=== PATIENT | male | born 1955 | race Caucasian/White ===

== ENCOUNTER → 2023-02-10 | Outpatient (CLI) | payer OTHER, MEDICARE, SELFPAY | END | disposition home or self-care (01) | PROVIDERS: Referring Provider Urology; Visit Provider Urology | DX: R31.9 Hematuria, unspecified (principal) | CPT/HCPCS: 87077; 87086; 87088; 87186 ==

== ENCOUNTER → 2025-02-16 | Outpatient (CLI) | payer MEDICARE, SELFPAY ==
--- NOTE | 2025-02-16 12:59 | NEURO ---
NCS and/or EMG Patient Report Ordering Doctor: Rocael Arrieta DATE OF SERVICE: 02/16/25 Carrillo presents with complaints of a 6-month history of numbness and tingling in the right hand. Electrodiagnostic findings: Right median motor nerve demonstrates prolonged latency with normal amplitude and conduction velocity. Right ulnar motor response is within normal limits, including conduction across the elbow. Normal right median and right ulnar F?wave. Prolonged right median sensory latency at the wrist. Normal ulnar and radial sensory responses. Needle EMG testing was performed the right upper limb. All muscles tested showed no evidence of denervation with normal motor unit action potentials. Electrodiagnostic assessment: This is an abnormal study. 1. Electrodiagnostic findings suggestive of right-sided median mononeuropathy. This is consistent with a mild to moderate right carpal tunnel syndrome. Multi Select Codes Neurology Neurology Interp Codes: 30009-55 Musc test done w/n test comp (interp) and 21779-12 Nrv cndj tst 5-6 studies (interp)
--- NOTE | 2025-02-16 12:59 | NEURO ---
NCS and/or EMG Patient Report Ordering Doctor: Rocael Arrieta DATE OF SERVICE: 02/16/25 Carrillo presents with complaints of a 6-month history of numbness and tingling in the right hand. Electrodiagnostic findings: Right median motor nerve demonstrates prolonged latency with normal amplitude and conduction velocity. Right ulnar motor response is within normal limits, including conduction across the elbow. Normal right median and right ulnar F?wave. Prolonged right median sensory latency at the wrist. Normal ulnar and radial sensory responses. Needle EMG testing was performed the right upper limb. All muscles tested showed no evidence of denervation with normal motor unit action potentials. Electrodiagnostic assessment: This is an abnormal study. 1. Electrodiagnostic findings suggestive of right-sided median mononeuropathy. This is consistent with a mild to moderate right carpal tunnel syndrome. Multi Select Codes Neurology Neurology Interp Codes: 84019-48 Musc test done w/n test comp (interp) and 21266-59 Nrv cndj tst 5-6 studies (interp)
--- OUTSIDE RECORDS SUMMARY | 2025-02-16 20:19 | XMS RPT_ITS | CCD ---
Author Organization [facility] CliniSyct Care Team Providers Care Fluorescent Lamp Replacer Name Role Phone DUNIA VITAL, DR FERNANDO HUMMEL Attending Eric WHITE MD, DR FERNANDO HUMMEL Admitting ELI Toure DO Consulting Merle WHITE MD, DR FERNANDO HUMMEL Attending Fernando Arcos Referring Unavailable Fernando White Attending Unavailable RAMAKRISHNA JARQUIN MD Admitting Unavailable RAMAKRISHNA JARQUIN MD Attending Unavailable RAMAKRISHNA JARQUIN MD Primary Care Unavailable RAMAKRISHNA JARQUIN MD Consulting Unavailable PROVIDER, UNKNOWN Consulting Unavailable PROVIDER, UNKNOWN Consulting Unavailable RAMAKRISHNA JARQUIN MD Admitting Unavailable RAMAKRISHNA JARQUIN MD Attending Unavailable RAMAKRISHNA JARQUIN MD Primary Care Unavailable RAMAKRISHNA JARQUIN MD Consulting Unavailable PROVIDER, UNKNOWN Consulting Unavailable PROVIDER, UNKNOWN Consulting Unavailable RAMAKRISHNA JARQUIN MD Admitting Unavailable RAMAKRISHNA JARQUIN MD Attending Unavailable RAMAKRISHNA JARQUIN MD Primary Care Unavailable RAMAKRISHNA JARQUIN MD Consulting Unavailable PROVIDER, UNKNOWN Consulting Unavailable PROVIDER, UNKNOWN Consulting Unavailable JENELLE GALINDO DR Admitting Unavailable JENELLE GALINDO DR Attending Unavailable JENELLE GALINDO DR Primary Care Unavailable RAMAKRISHNA JARQUIN MD Consulting Unavailable PROVIDER, UNKNOWN Consulting Unavailable PROVIDER, UNKNOWN Consulting Unavailable Allergies Allergy Classification Reported Allergen(s) Allergy Type Date of Onset Reaction(s) Facility (1 source) Penicillin Drug Allergy [facility] Repository Problems Active Problems Problem Classification Problem Date Documented Da te Episodic/Chronic Disorders of lipid metabolism (1 source) Mixed hyperlipidemia; Translations: [Mixed hyperlipidemia] Onset: 09-02-2024 Chronic Essential hypertension (1 source) Essential (primary) hypertension; Translations: [Essential (primary) hypertension] Onset: 09-02-2024 Chronic Genitourinary symptoms and ill-defined conditions (1 source) Hematuria, unspecified; Translations: [Hematuria, unspecified] Onset: 05-05-2023 Episodic Hyperplasia of prostate (2 sources) Benign prostatic hyperplasia with lower urinary tract symptoms; Translations: [Benign prostatic hyperplasia with lower urinary tract symptoms] Onset: 02-14-2023 Chronic Past or Other Problems Problem Classification Problem Date Documented Da te Episodic/Chronic Other non-traumatic joint disorders (3 sources) Pain in right elbow; Translations: [Pain in right elbow] Onset: 07-15-2024 Episodic Other screening for suspected conditions (not mental disorders or infectious disease) (1 source) Encounter for screening for malignant neoplasm of prostate; Translations: [Encounter for screening for malignant neoplasm of prostate] Onset: 03-22-2024 Episodic Results Test Name Value Interpretation Reference Range Facility CBC (NO DIFF)on 09-02-2024 CBC panel Auto (Bld) Normal [facility] Comment on above: Result Comment: CBC( WITHOUT DIFFERENTIAL) Performed By: #### 2 85351 #### [place] [address] Erythrocyte distribution width (RBC) [Ratio] 12.7 % Normal 12.0 - 15.6 [facility] Comment on above: Performed By: #### 2 73692 #### [place] [address] Hematocrit (Bld) [Volume fraction] 44.8 % Normal 40.0 - 52.0 [facility] Comment on above: Performed By: #### 2 32455 #### [place] [address] Hemoglobin (Bld) [Mass/Vol] 15.4 g/dL Normal 13.0 - 17.5 [facility] Comment on above: Performed By: #### 2 55106 #### [place] [address] MCH (RBC) [Entitic mass] 32 pg Normal 27 - 33 [facility] Comment on above: Performed By: #### 2 19211 #### [address],[place] [address] MCHC 34 X10 3 Normal 32 - 36 [facility] Comment on above: Performed By: #### 2 71669 #### [facility],[address] [place], [place] [id number] MCV (RBC) [Entitic vol] 95 fL Normal 81 - 98 [facility] Comment on above: Performed By: #### 2 33016 #### [facility],[address] [place], [place] [id number] PLATELET 295 x10EE3/UL Normal 150 - 450 [facility] Comment on above: Performed By: #### 2 54093 #### [facility],[address] [place] [address] Platelet mean volume (Bld) [Entitic vol] 8.3 fL Normal 6.4 - 10.5 [facility] Comment on above: Performed By: #### 2 40393 #### [facility],[address] [place], [place] [id number] RBC 4.74 x 10EE6/UL Normal 4.50 - 6.00 [facility] Comment on above: Performed By: #### 2 92249 #### [facility],[address] [place], [place] [id number] WBC 5.5 x 10EE3/UL Normal 4.5 - 10.8 [facility] Comment on above: Performed By: #### 2 48972 #### [facility],[address] [place] [address] CMP with eGFRon 09-02-2024 AGE 69 years Normal [facility] Comment on above: Performed By: #### 2 85390 #### [facility],[address] [place] [address] 22472 Albumin [Mass/Vol] 3.7 g/dL Normal 3.4 - 5.0 [facility] Comment on above: Performed By: #### 2 89438 #### [facility],[address] [place] [address]7518 Albumin/Globulin [Mass ratio] 1.2 {ratio} Normal 0.9 - 1.6 [facility] Comment on above: Performed By: #### 2 60892 #### [facility],[address] [place] [address]0466 ALK PHOS 75 U/L Normal 46 - 116 [facility] Comment on above: Performed By: #### 2 09574 #### [facility],[address] [place] [address] 44853 ALT [Catalytic activity/Vol] 24 U/L Normal 16 - 63 [facility] Comment on above: Performed By: #### 2 05798 #### [facility],[address] [place] [address] 31380 Anion gap [Moles/Vol] 9 mmol/L Low 10 - 20 [facility] Comment on above: Performed By: #### 2 57651 #### [facility],[address] [place] [address] 95757 AST [Catalytic activity/Vol] 19 U/L Normal 15 - 37 [facility] Comment on above: Performed By: #### 2 55025 #### [facility],[address] [place] [address] 84457 B/C RATIO 16 ratio Normal 0 - 30 [facility] Comment on above: Performed By: #### 2 91157 #### [facility],[address] [place] [address] 63804 Bilirubin [Mass/Vol] 0.9 mg/dL Normal 0.2 - 1.0 [facility] Comment on above: Performed By: #### 2 13611 #### [facility],[address] [place] [address] 00061 Calcium [Mass/Vol] 9.0 mg/dL Normal 8.5 - 10.1 [facility] Comment on above: Performed By: #### 2 74611 #### [facility],[address] [place] [address] 31182 Chloride [Moles/Vol] 107 mmol/L Normal 98 - 107 [facility] Comment on above: Performed By: #### 2 69292 #### [facility],[address] [place] [address] 70629 CMP with eGFR Normal [facility] Comment on above: Result Comment: COMP REHENSIVE METABOLIC PANEL Performed By: #### 2 75594 #### [facility],[address] [place] [address] 62935 CO2 [Moles/Vol] 34.2 mmol/L High 21.0 - 32.0 [facility] Comment on above: Performed By: #### 2 73862 #### [facility],[address] [place] [address] 43468 Creatinine [Mass/Vol] 0.91 mg/dL Normal 0.70 - 1.30 [facility] Comment on above: Performed By: #### 2 19691 #### [facility],[address] [place] [address] 59485 GFR/1.73 sq M.predicted among non-blacks MDRD (S/P/Bld) [Vol rate/Area] mL/min/{1.73_m2} Normal 60 - 999 [facility] Comment on above: Performed By: #### 2 94979 #### [facility],[address] [place], [place] [id number] Result Comment: ACCO RDING TO THE NATIONAL KIDNEY DISEASE EDUCATION PROGRAM(NKDE), A NORMAL eGFR IS A VALUE GREATER THAN OR EQUAL TO 60 ML/MIN/1.73 SQ METERS. CHRONIC KIDNEY DISEASE: <60mL/MIN/1.73 SQ METERS KIDNEY FAILURE: <15mL/MIN/1.73 SQ METERS THIS TEST SHOULD ONLY BE USED FOR PATIENTS 18 YEARS OF AGE AND OLDER. Globulin (S) [Mass/Vol] 3.2 g/dL Normal 1.5 - 3.8 [facility] Comment on above: Performed By: #### 2 63173 #### [facility],[address] [place] [address] 11473 Glucose [Mass/Vol] 97 mg/dL Normal 74 - 106 [facility] Comment on above: Performed By: #### 2 37805 #### [facility],[address] [place] [address] 92207 Potassium [Moles/Vol] 4.2 mmol/L Normal 3.5 - 5.1 [facility] Comment on above: Performed By: #### 2 49540 #### [facility],[address] [place] [address] 74945 Protein [Mass/Vol] 6.9 g/dL Normal 6.4 - 8.2 [facility] Comment on above: Performed By: #### 2 23171 #### [facility],[address] [place] [address] 75297 Sodium [Moles/Vol] 146 mmol/L High 136 - 145 [facility] Comment on above: Performed By: #### 2 13163 #### [facility],[address] [place] [address] 44813 Urea nitrogen [Mass/Vol] 15 mg/dL Normal 7 - 18 [facility] Comment on above: Performed By: #### 2 84363 #### [facility],[address] [place] [address] 60698 LIPID PROFILEon 09-02-2024 Cholesterol [Mass/Vol] 224 mg/dL Normal 0 - 240 [facility] Comment on above: Performed By: #### 2 46547 #### [facility],[address] [place] [address] 21484 Cholesterol in HDL [Mass/Vol] 61 mg/dL High 40 - 60 [facility] Comment on above: Performed By: #### 2 46048 #### [facility],[address] [place] [address] 96128 Cholesterol in LDL [Mass/Vol] 150 mg/dL High 0 - 129 [facility] Comment on above: Performed By: #### 2 67504 #### [facility],[address] [place] [address] 13529 Cholesterol.total /Cholesterol in HDL [Mass ratio] 3.7 {ratio} Normal 0.0 - 5.0 [facility] Comment on above: Performed By: #### 2 70468 #### [facility],[address] [place] [address] 94704 Lipid 1996 panel Normal [facility] Comment on above: Result Comment: LIPI D PROFILE Performed By: #### 2 38754 #### [facility],[address] [place] [address] 01620 Triglyceride [Mass/Vol] 66 mg/dL Normal 0 - 150 [facility] Comment on above: Performed By: #### 2 56066 #### [facility],[address] [place] [address] 68814 ELBOW COMPLETE RTon 07-15-20 24 ELBOW COMPLETE RT [place] [address] Patient: TANYA DUVALL Phone#: : 1955 Age: 69 Gender: M Pt. Type: Out Account: [id number] Location: [facility] Ordering: RAMAKRISHNA JARQUIN Exam Date: 07/15/2024/13:37 Family Phys: Charge Code: [id number] Physician: Baldwin Order #: [id number] Dose#: PROCEDURE: X-RAY ELBOW RT MIN 3 VIEWS COMPARISON: None. INDICATIONS: Pain. FINDINGS: BONES: No acute abnormality. There is enthesopathy at the olecranon process. Radial head is normal in contour. Joint space is maintained. 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 SOFT TISSUES: Negative. No visible soft tissue swelling. EFFUSION: None visible. OTHER: Negative. CONCLUSION: 1. Enthesopathy at the olecranon process 2. Lateral accessory ossicle Dictated by: Marilyn Caballero MD on 07/15/2024 at 13:57 Approved by: Marilyn Caballero MD on 07/15/2024 at 14:02 Normal [facility] Final Surgical Pathology Rep darcy 02-18-2023 Final Surgical Pathology Report . Pathology Reports Accession: Collected Date/Time: Received Date/Time: Pathologist: [id number] 02/14/2023 17:09 EDT 02/17/2023 09:49 EDT FRIEDA HILLMAN MD Final Surgical Pathology Report DIAGNOSIS: PROSTATE, TRANSURETHRAL RESECTION: - ADENOMATOUS AND FIBROMUSCULAR HYPERPLASIA OF PROSTATE - NEGATIVE FOR MALIGNANCY CLINICAL INFORMATION: BENIGN PROSTATIC HYPERPLASIA WITH LOWER URINARY TRACT SYMPTOMS Procedure: TRANSURETHRAL RESECTION OF PROSTATE Preoperative diagnosis: BENIGN PROSTATIC HYPERPLASIA WITH LOWER URINARY TRACT SYMPTOMS Postoperative diagnosis: BENIGN PROSTATIC HYPERPLASIA WITH LOWER URINARY TRACT SYMPTOMS SPECIMEN: A PROSTATE CHIPS GROSS DESCRIPTION: A. Received in formalin, labeled with the patients name, Case # [id number], and prostate chips are 20 g of cullen-pink rubbery prostate chips aggregating to 7.2 x 5.5 x 3 cm. RS -8 Dictated by TANYA NOONAN MICROSCOPIC DESCRIPTION: The microscopic examination is performed, except in the case of Gross Only. Electronically Signed by Pathology Report verified by [facility] FRIEDA HILLMAN Sign out Date: 02/18/2023 13:14 Performing Lab: [facility], [address] [place] [address] Pathology Dept Disclaimer If ancillary studies were utilized, the following Laboratory Developed Test (LDT) disclaimer will apply: Under CLIA requirements, [facility] is qualified to perform high complexity testing. For all ancillary stains, positive and negative controls stain appropriately. Performance characteristics of immunohistochemical and chromogenic in-situ hybridization tests have been determined by [facility]. These tests are used for clinical purposes, They should not be regarded as investigational or for research. Normal [facility] ([place]) Urine Cultureon 02-12-2023 [facility] Serratia marcescens [place] Count 11,000-25,000 Serratia marcescens: REACTION ceFAZolin Islt LYNN >=64 R Cefepime Islt LYNN <=0.12 S cefTRIAXone Islt LYNN <=0.25 S Ciprofloxacin Islt LYNN <=0.25 S Ertapenem Islt LYNN <=0.12 S Gentamicin Islt LYNN <=1 S levoFLOXacin Islt LYNN <=0.12 S Nitrofurantoin Islt LYNN 128 R Tobramycin Islt LYNN 2 S TMP SMX Islt LYNN <=20 S Normal [facility] Comment on above: Performed By: #### M 100.2200 #### [facility] [address] [place], [address] Encounters Encounter Date Encounter Type Care Provider Facility Start: 02-02-2025 ambulatory JENELLE GALINDO [facility] Start: 09-02-2024 End: 09-02-2024 [facility] Start: 07-15-2024 End: 07-15-2024 [facility] Start: 03-22-2024 End: 03-22-2024 [facility]ulatory [facility] Start: 02-14-2023 End: 02-15-[address] FERNANDO WHITE MD Facility:B Start: 02-11-2023 End: 02-12-[address] FERNANDO WHITE MD Facility:[facility] Start: 02-10-2023 End: 02-10-2023 ambulatory Fernando White Facility:[facility] Procedures Date Procedure Procedure Detail Performing Clinician Start: 03-22-2024 PSA screening RAMAKRISHNA GARZA Comment on above: Performed By: #### 2 60604 #### [facility],[address] [facility] [address] Payers Date Payer Category Payer Self-pay 2023 Unknown [id number] 2022 Medicare [id number] 1955 Unknown [id number] 2.16.8 [id number] 1955 Unknown [id number] 2.16.8 [id number] 1955 Unknown [id number] 2.16.8 [id number] 1955 Unknown [id number] 2.16.8 [id number] 1955 Unknown [id number] 2.16.8 [id number] 1955 Unknown [id number] 2.16.8 [id number] Unknown [id number] 2.16.8 [id number] Summary Purpose Family History No Family History Records FoundNo Family History Records FoundNo Family History Records Found Advance Directives No Advanced Directives Records FoundNo Advanced Directives Records FoundNo Advanced Directives Records Found Additional Source Comments (unrecognized sect ion and content) No Status Records FoundNo Status Records FoundNo Status Records Found INFORMATION SOURCE (unrecogn ized section and content) DATE CREATED AUTHOR 02/21/2023 [facility] ([place]) DATE CREATED AUTHOR AUTHOR'S ORGANIZ ATION 05/10/2023 [facility] DATE CREATED AUTHOR AUTHOR'S ORGANIZ ATION 02/13/2025 [facility] FOR RECORDS PERTAINING TO PATIENTS WHO ARE OR HAVE BEEN ENROLLED IN A CHEMICAL DEPENDENCY/SUBSTANCEABUSE PROGRAM, SOME INFORMATION MAY BE OMITTED. This clinical summary was aggregated from multiple sources. Caution should be exercised in using it in the provision of clinical care. This summary normalizes information from multiple sources, and as a consequence, information in this document may materially change the coding, format and clinical context of patient data. In addition, data may be omitted in some cases. CLINICAL DECISIONS SHOULD BE BASED ON THE PRIMARY CLINICAL RECORDS. [facility] [facility]. provides no warranty or guarantee of the accuracy or completeness of information in this document.
--- OUTSIDE RECORDS SUMMARY | 2025-02-16 20:19 | XMS RPT_ITS | CCD ---
Author Organization [facility] CliniSywy Care Team Providers Care Mail Examiner Name Role Phone DUNIA VITAL, DR FERNANDO HUMMEL Attending Eric WHITE MD, DR FERNANDO HUMMEL Admitting ELI Toure DO Consulting Merle WHITE MD, DR FERNANDO HUMMEL Attending Fernando Arcos Referring Unavailable Fernando White Attending Unavailable RAMAKRISHNA JARQUIN MD Admitting Unavailable RAMAKRISHNA JARQUIN MD Attending Unavailable RAMAKRISHNA AJRQUIN MD Primary Care Unavailable RAMAKRISHNA JARQUIN MD [...] Reaction(s) Facility (1 source) Penicillin Drug Allergy [facility] Repository Problems Active Problems Problem Classification Problem [...] DIFF)on 09-02-2024 CBC panel Auto (Bld) Normal [facility] Comment on above: Result Comment: CBC( WITHOUT DIFFERENTIAL) Performed By: #### 2 [id number] #### [place] [address] Erythrocyte distribution width (RBC) [Ratio] 12.7 % Normal 12.0 - 15.6 [facility] Comment on above: Performed By: #### 2 90975 #### [place] [address] Hematocrit (Bld) [Volume fraction] 44.8 % Normal 40.0 - 52.0 [facility] Comment on above: Performed By: #### 2 84429 #### [place] [address] Hemoglobin (Bld) [Mass/Vol] 15.4 g/dL Normal 13.0 - 17.5 [facility] Comment on above: Performed By: #### 2 37396 #### [place] [id number] MCH (RBC) [Entitic mass] 32 pg Normal 27 - 33 [facility] Comment on above: Performed By: #### 2 96320 #### [address],[place] [address] MCHC 34 X10 3 Normal 32 - 36 [facility] Comment on above: Performed By: #### 2 54572 #### [facility],[address] [place], [place] [id number] MCV (RBC) [Entitic vol] 95 fL Normal 81 - 98 [facility] Comment on above: Performed By: #### 2 65048 #### [facility],[address] [place], [place] [id number] PLATELET 295 x10EE3/UL Normal 150 - 450 [facility] Comment on above: Performed By: #### 2 48389 #### [facility],[address] [place] [address] Platelet mean volume (Bld) [Entitic vol] 8.3 fL Normal 6.4 - 10.5 [facility] Comment on above: Performed By: #### 2 08725 #### [facility],[address] [place], [place] [id number] RBC 4.74 x 10EE6/UL Normal 4.50 - 6.00 [facility] Comment on above: Performed By: #### 2 53577 #### [facility],[address] [place], [place] [id number] WBC 5.5 x 10EE3/UL Normal 4.5 - 10.8 [facility] Comment on above: Performed By: #### 2 85266 #### [facility],[address] [place] [address]50 CMP with eGFRon 09-02-2024 AGE 69 years Normal [facility] Comment on above: Performed By: #### 2 69524 #### [facility],[address] [place] [address] 40842 Albumin [Mass/Vol] 3.7 g/dL Normal 3.4 - 5.0 [facility] Comment on above: Performed By: #### 2 80319 #### [facility],[address] [place] [address] 77230 Albumin/Globulin [Mass ratio] 1.2 {ratio} Normal 0.9 - 1.6 [facility] Comment on above: Performed By: #### 2 91726 #### [facility],[address] [place] [address] 49538 ALK PHOS 75 U/L Normal 46 - 116 [facility] Comment on above: Performed By: #### 2 78946 #### [facility],[address] [place] [address] 33695 ALT [Catalytic activity/Vol] 24 U/L Normal 16 - 63 [facility] Comment on above: Performed By: #### 2 22555 #### [facility],[address] [place] [address] 23388 Anion gap [Moles/Vol] 9 mmol/L Low 10 - 20 [facility] Comment on above: Performed By: #### 2 71903 #### [facility],[address] [place] [address] 78674 AST [Catalytic activity/Vol] 19 U/L Normal 15 - 37 [facility] Comment on above: Performed By: #### 2 05758 #### [facility],[address] [place] [address] 12937 B/C RATIO 16 ratio Normal 0 - 30 [facility] Comment on above: Performed By: #### 2 62087 #### [facility],[address] [place] [address] 25990 Bilirubin [Mass/Vol] 0.9 mg/dL Normal 0.2 - 1.0 [facility] Comment on above: Performed By: #### 2 63244 #### [facility],[address] [place] [address] 81037 Calcium [Mass/Vol] 9.0 mg/dL Normal 8.5 - 10.1 [facility] Comment on above: Performed By: #### 2 53522 #### [facility],[address] [place] [address] 50924 Chloride [Moles/Vol] 107 mmol/L Normal 98 - 107 [facility] Comment on above: Performed By: #### 2 32479 #### [facility],[address] [place] [address] 01300 CMP with eGFR Normal [facility] Comment on above: Result Comment: COMP REHENSIVE METABOLIC PANEL Performed By: #### 2 83531 #### [facility],[address] [place] [address] 13533 CO2 [Moles/Vol] 34.2 mmol/L High 21.0 - 32.0 [facility] Comment on above: Performed By: #### 2 08835 #### [facility],[address] [place] [address] 16205 Creatinine [Mass/Vol] 0.91 mg/dL Normal 0.70 - 1.30 [facility] Comment on above: Performed By: #### 2 09482 #### [facility],[address] [place] [address] 70465 GFR/1.73 sq M.predicted among non-blacks MDRD (S/P/Bld) [Vol rate/Area] mL/min/{1.73_m2} Normal 60 - 999 [facility] Comment on above: Performed By: #### 2 59285 #### [facility],[address] [place], [place] [address] Result Comment: ACCO RDING TO THE NATIONAL KIDNEY DISEASE EDUCATION PROGRAM(NKDE), A NORMAL eGFR IS A VALUE GREATER THAN OR EQUAL TO 60 ML/MIN/1.73 SQ METERS. CHRONIC KIDNEY DISEASE: <60mL/MIN/1.73 SQ METERS KIDNEY FAILURE: <15mL/MIN/1.73 SQ METERS THIS TEST SHOULD ONLY BE USED FOR PATIENTS 18 YEARS OF AGE AND OLDER. Globulin (S) [Mass/Vol] 3.2 g/dL Normal 1.5 - 3.8 [facility] Comment on above: Performed By: #### 2 29536 #### [facility],[address] [place] [address] 00520 Glucose [Mass/Vol] 97 mg/dL Normal 74 - 106 [facility] Comment on above: Performed By: #### 2 91418 #### [facility],[address] [place] [address] 24198 Potassium [Moles/Vol] 4.2 mmol/L Normal 3.5 - 5.1 [facility] Comment on above: Performed By: #### 2 33744 #### [facility],[address] [place] [address] 10721 Protein [Mass/Vol] 6.9 g/dL Normal 6.4 - 8.2 [facility] Comment on above: Performed By: #### 2 65622 #### [facility],[address] [place] [address] 07238 Sodium [Moles/Vol] 146 mmol/L High 136 - 145 [facility] Comment on above: Performed By: #### 2 97178 #### [facility],[address] [place] [address] 13782 Urea nitrogen [Mass/Vol] 15 mg/dL Normal 7 - 18 [facility] Comment on above: Performed By: #### 2 40397 #### [facility],[address] [place] [address] 98729 LIPID PROFILEon 09-02-2024 Cholesterol [Mass/Vol] 224 mg/dL Normal 0 - 240 [facility] Comment on above: Performed By: #### 2 74845 #### [facility],[address] [place] [address] 82167 Cholesterol in HDL [Mass/Vol] 61 mg/dL High 40 - 60 [facility] Comment on above: Performed By: #### 2 23704 #### [facility],[address] [place] [address] 25899 Cholesterol in LDL [Mass/Vol] 150 mg/dL High 0 - 129 [facility] Comment on above: Performed By: #### 2 14799 #### [facility],[address] [place] [address] 89594 Cholesterol.total /Cholesterol in HDL [Mass ratio] 3.7 {ratio} Normal 0.0 - 5.0 [facility] Comment on above: Performed By: #### 2 14568 #### [facility],[address] [place] [address] 57503 Lipid 1996 panel Normal [facility] Comment on above: Result Comment: LIPI D PROFILE Performed By: #### 2 39641 #### [facility],[address] [place] [address] 84090 Triglyceride [Mass/Vol] 66 mg/dL Normal 0 - 150 [facility] Comment on above: Performed By: #### 2 91831 #### [facility],[address] [place] [address] 81117 ELBOW COMPLETE RTon 07-15-20 24 ELBOW COMPLETE RT [place] [address] Patient: TANYA UDVALL Phone#: : 1955 Age: 69 Gender: M Pt. Type: Out Account: [id number] Location: [facility] Ordering: RAMAKRISHNA JARQUIN Exam Date: 07/15/2024/13:37 Family Phys: Charge Code: [id number] Physician: Rooks Order #: [id number] Dose#: PROCEDURE: X-RAY ELBOW RT MIN 3 [...] Caballero MD on 07/15/2024 at 14:02 Normal [facility] Final Surgical Pathology Rep darcy 02-18-2023 Final Surgical Pathology Report . Pathology Reports Accession: Collected Date/Time: Received Date/Time: Pathologist: [id number] 02/14/2023 17:09 EDT 02/17/2023 09:49 EDT FRIEDA [...] Electronically Signed by Pathology Report verified by [facility] FRIEAD HILLMAN Sign out Date: 02/18/2023 13:14 Performing Lab: [facility], [address] [place] [address] Pathology Dept Disclaimer If ancillary studies were utilized, the following Laboratory Developed Test (LDT) disclaimer will apply: Under CLIA requirements, [facility] is qualified to perform high complexity testing. For all ancillary stains, positive and negative controls stain appropriately. Performance characteristics of immunohistochemical and chromogenic in-situ hybridization tests have been determined by [facility]. These tests are used for clinical purposes, They should not be regarded as investigational or for research. Normal [facility] ([place]) Urine Cultureon 02-12-2023 [facility] Serratia marcescens [place] Count 11,000-25,000 Serratia marcescens: REACTION ceFAZolin Islt LYNN >=64 R Cefepime Islt LYNN <=0.12 S cefTRIAXone Islt LYNN <=0.25 S Ciprofloxacin Islt LYNN <=0.25 S Ertapenem Islt LYNN <=0.12 S Gentamicin Islt LYNN <=1 S levoFLOXacin Islt LYNN <=0.12 S Nitrofurantoin Islt LYNN 128 R Tobramycin Islt LYNN 2 S TMP SMX Islt LYNN <=20 S Normal [facility] Comment on above: Performed By: #### M 100.2200 #### [facility] [address] [place], [address] Encounters Encounter Date Encounter Type Care Provider Facility Start: 02-02-2025 ambulatory JENELLE GALINDO [facility] Start: 09-02-2024 End: 09-02-2024 [facility]: 07-15-2024 End: 07-15-2024 [facility] Start: 03-22-2024 End: 03-22-2024 amb[facility] Start: 02-14-2023 End: 02-15-[address] FERNANDO WHITE MD Facility:[facility] Start: 02-11-2023 End: 02-12-[address] FERNANDO WHITE MD Facility:[facility] Start: 02-10-2023 End: 02-10-2023 ambulatory Fernando White Facility:[facility] Procedures Date Procedure Procedure Detail Performing Clinician Start: 03-22-2024 PSA screening RAMAKRISHNA GARZA Comment on above: Performed By: #### 2 37885 #### [facility],[address] [facility] [address] Payers Date Payer Category Payer Self-pay 2023 Unknown [id number] 2022 Medicare [id number] 1955 Unknown [id number] 2.16.8 [id number] 1955 Unknown [id number] 2.16.8 [id number] 1955 Unknown [id number] 2.16.8 [id number] 1955 Unknown [id number] 2.16.8 [id number] 1955 Unknown [id number] 2.16.8 [id number] 1955 Unknown [id number] 2.16.8 [id number] Unknown [id number] 2.16.8 [id number] Summary Purpose Family History No Family History Records FoundNo Family History Records FoundNo Family History Records Found Advance Directives No Advanced Directives Records FoundNo Advanced Directives Records FoundNo Advanced Directives Records Found Additional Source Comments (unrecognized sect ion and content) No Status Records FoundNo Status Records FoundNo Status Records Found INFORMATION SOURCE (unrecogn ized section and content) DATE CREATED AUTHOR 02/21/2023 [facility] ([place]) DATE CREATED AUTHOR AUTHOR'S ORGANIZ ATION 05/10/2023 [facility] DATE CREATED AUTHOR AUTHOR'S ORGANIZ ATION 02/13/2025 [facility] FOR RECORDS PERTAINING TO PATIENTS WHO [...] BE BASED ON THE PRIMARY CLINICAL RECORDS. [facility]. provides no warranty or guarantee of the accuracy or completeness of information in this document.
== END | disposition home or self-care (01) ==
LOC: PSN 09:50
PROVIDERS: PCP Student in an Organized Health Care Education/Training Program; Referring Provider Orthopaedic Surgery; Visit Provider Orthopaedic Surgery
DX: R20.2 Paresthesia of skin (principal)
CPT/HCPCS: 95886; 95909